=== PATIENT | female | born 1985 | race Caucasian/White ===

== ENCOUNTER 2023-12-12 23:18 | Emergency (ER) | payer OTHER, SELFPAY ==
[2023-12-12 23:26] VITALS: BP 107/86
[2023-12-13] MEDS: DILAUDID 0.5 MG IV ×2 (01:12→02:36)
--- NOTE | 2023-12-13 01:49 | ED.GENMED ---
History of Present Illness
General
Chief Complaint: Musculo-Skeletal Complaint
Source: patient
Exam Limitations: none
Time Seen by Provider: 12/13/23 00:39
Travel History
Have you had any contact with someone who has COVID-19?: No
Do you have any symptoms of coronavirus? Fever > 100 degrees, chills, cough, shortness of breath, sore throat, loss of taste or smell, muscle aches, or headache?: No
History of Present Illness
History of Present Illness:
Patient caught her leg on a child's toy. Complaining of right leg pain no other injury or complaint
Past History
Past History
ED Past Medical History: None
Phy Exam
Physical Exam
Physical Exam:
General: Nontoxic appearing in no distress
Skin: Warm and dry, no rash
Neuro: Alert, nontoxic, grossly nonfocal
Psychiatric: Good eye contact and appropriate
Musculoskeletal: Swelling and deformity to the right ankle. Superficial abrasion noted. Good distal pulses and color. Foot nontender. No proximal tib-fib tenderness. Achilles intact.
Course
Orders/Labs/Results
Orders:
Orders
12/13/23 00:45
IV Insert/Care/Rem.- Treatment PRN
HYDROmorphone [Dilaudid] 0.5 mg IV NOW STA
Ankle, Right 3 view CR [CR Ankle - Right Min 3 Views *] Urgent
Comment:
Reason For Exam: trauma
Tibia/Fibula, Right 2 View [CR Leg Tibia/fibula Right 2 Vw] Urgent
Comment:
Reason For Exam: trauma
Pulse Ox/cont/shift [RESP] Stat
Quantity: 1
12/13/23 02:27
HYDROmorphone [Dilaudid] 0.5 mg IV NOW STA
Ondansetron Injectable [Zofran] 4 mg IV NOW STA
12/13/23 02:32
Crutches-Treatment ONCE
12/13/23 02:50
Hydrocodone 5/APAP 325 [Waldo 5/325] 1 tablet PO NOW STA
Ketorolac [Toradol] 15 mg IV NOW STA
Vital Signs
Initial and Last Documented VS:
Initial Vital Signs
Temp Pulse Resp BP Pulse Ox
97.9 F 89 18 107/86 100
12/12/23 23:26 12/12/23 23:26 12/12/23 23:26 12/12/23 23:26 12/12/23 23:26
Last Documented Vital Signs
Temp Pulse Resp BP Pulse Ox
97.9 F 78 16 104/78 100
12/12/23 23:26 12/13/23 03:00 12/13/23 03:00 12/13/23 03:00 12/13/23 03:00
*Critical Care Note
Total Time (30-74mins, 75-104mins- exclusive of procedures): Not Applicable
Update Note
Update Note:
Posterior and sugar-tong splint placed by myself with assistance by the PA student and nurse. Good distal circulation edges were covered
ED Attending Note
-
Portions of this chart may have been created with voice recognition software.� Occasional wrong word or��sound alike� substitutions may have occurred due to the inherent limitations of voice recognition software.
Discharge Plan
Departure
Patient Disposition: Home (Routine Discharge)
Date of Disposition: 12/13/23
Time of Disposition: 02:32
Patient with high blood pressure during this ER visit?: No
Discharge Problem:
Trimalleolar right ankle fracture
Instructions: Ankle Fracture (DC)
Prescriptions:
New
hydrocodone-acetaminophen 5-300 mg tablet
1 tab PO Q6H PRN (Reason: Pain) Qty: 14 0RF
No Action
vit-iron fum-folic ac 1 EACH tablet
1 ea PO DAILY
acetaminophen 325 MG tablet
650 mg PO Q4HPRN PRN (Reason: mild pain) 0RF
sennosides-docusate sodium 1 TABLET tablet
1 tab PO DAILYPRN PRN (Reason: constipation) Qty: 30 0RF
oxycodone-acetaminophen 5 MG/325 MG tablet
1 tab PO Q4HPRN PRN (Reason: moderate pain) Qty: 10 0RF
ibuprofen 600 MG tablet
600 mg PO Q6HPRN PRN (Reason: cramps) Qty: 60 0RF
Referrals:
Chicho Porras MD [Active] - Follow up in 2-3 days
Merlin Montano MD [Family Provider] -
Activity Restrictions/Additional Instructions:
Orthopedist first thing Friday morning to be seen early this week. This is very likely a surgical follow-up
Advil or Motrin for pain. Only use the Vicodin for more severe pain
The prescription for the stronger pain medicine was sent to your pharmacy
Interventions
Interventions:
*Risk Screen - Suicide Last Done: 12/12/23 23:26
*General Assessment Last Done: 12/12/23 23:26
*Neglect/Abuse Screening Last Done: 12/12/23 23:26
ED- Fall Risk Assessment Last Done: 12/12/23 23:26
*ED COVID-19 Vaccine History Last Done: 12/12/23 23:26
*Nursing Disposition Last Done: 12/13/23 03:51
ED-Musculoskeletal Assessment Last Done: 12/12/23 23:26
Discharge Date and Time
Discharge Date/Time: 12/13/23 03:52
Print Language: AMHARIC
[2023-12-13 02:32] VITALS: BMI 27.5
[2023-12-13] MEDS: ZOFRAN 4 MG IV (02:36)
[2023-12-13 03:00] VITALS: BP 104/78
[2023-12-13] MEDS: NORCO 5/325 1 TABLET PO (03:19)
[2023-12-13] MEDS: TORADOL 15 MG IV (03:20)
== END 2023-12-13 03:52 | disposition home or self-care (01) ==
LOC: EMR 23:18
PROVIDERS: EMERGENCY PHYSICIAN Emergency Medicine; FAMILY PHYSICIAN Internal Medicine
DX: S82.851A Displaced trimalleolar fracture of right lower leg, initial encounter for closed fracture (principal); S90.511A Abrasion, right ankle, initial encounter; W18.09XA Striking against other object with subsequent fall, initial encounter
CPT/HCPCS: 99284; 96374; 29515; 96375 ×2; 96376; 94760; 73590; 73610

== ENCOUNTER 2023-12-18 06:22 | Day surgery (SDC) | payer SELFPAY ==
[2023-12-18] VITALS (11 sets, daily range): BP systolic 117–143; BP diastolic 66–95; BMI 26.6
[2023-12-18] MEDS: NORMOSOL-R 1000 IV (08:55)
[2023-12-18] MEDS: CELEBREX 200 MG PO (09:09)
[2023-12-18] MEDS: TYLENOL 1000 MG PO (09:09)
[2023-12-18] MEDS: DILAUDID 0.5 MG IV ×2 (12:46→13:16)
[2023-12-18] MEDS: DEMEROL 12.5 MG IV (13:39)
[2023-12-18] MEDS: ROXICODONE 5 MG PO (14:49)
[2023-12-18] MEDS: TYLENOL 650 MG PO (16:29)
== END 2023-12-18 16:55 | disposition home or self-care (01) ==
LOC: SDS 06:22
PROVIDERS: ATTENDING PHYSICIAN Orthopaedic Surgery
DX: S82.841A Displaced bimalleolar fracture of right lower leg, initial encounter for closed fracture (principal); W19.XXXA Unspecified fall, initial encounter
CPT/HCPCS: 27814; 73610; 76000; C1713